=== PATIENT | male | born 1995 | race Caucasian/White ===

== ENCOUNTER 2022-06-01 12:26 | Emergency (ER) | payer OTHER ==
[~2022-06-01] VITALS: Ht 180.3 cm; Wt 113.0 kg
[2022-06-01] MEDS ORDERED: IBUPROFEN 400MG TABLET PO ONE (13:15)
[2022-06-01] MEDS ORDERED: TETANUS, DIPHTHERIA, PERTUSSIS VAC/PF 0.5ML (>10YR OLD) IM ONE (13:15)
[2022-06-01 13:41] VITALS: BP 137/83
== END 2022-06-01 14:06 | disposition home or self-care (01) ==
LOC: ER 12:26
DX: S00.212A Abrasion of left eyelid and periocular area, initial encounter (principal); S00.511A Abrasion of lip, initial encounter; Z90.49 Acquired absence of other specified parts of digestive tract; V43.52XA Car driver injured in collision with other type car in traffic accident, initial encounter; Y93.89 Activity, other specified; Y92.488 Other paved roadways as the place of occurrence of the external cause
CPT/HCPCS: 90471; 90715; 99283